=== PATIENT | male | born 1945 | race Caucasian/White ===

== ENCOUNTER 2020-11-01 16:40 | Emergency (ER) | payer MEDICARE, SELFPAY ==
--- NOTE | ~2020-11-01 | XR_ITS ---
EXAMINATION: CHEST AND RIGHT SHOULDER CLINICAL INFORMATION: Fall with pain COMPARISON: Chest radiograph 05/24/2018 TECHNIQUE: Single view chest, 3 views right shoulder FINDINGS: Patient status post median sternotomy. Heart size is normal. No infiltrates effusions or lung masses are seen. No fracture is seen involving the bony thorax. The right shoulder demonstrates degenerative changes with glenoid osteophytes. No fractures or dislocations are seen. Minimal degenerative changes present at the AC joint XR/XR shoulder RT min 2V IMPRESSION: No acute injury involving the chest or right shoulder. Degenerative changes present involving the glenohumeral joint.
--- NOTE | ~2020-11-01 | XR_ITS ---
EXAMINATION: CHEST AND RIGHT SHOULDER CLINICAL INFORMATION: Fall with pain COMPARISON: Chest radiograph 05/24/2018 TECHNIQUE: Single view chest, 3 views right shoulder FINDINGS: Patient status post median sternotomy. Heart size is normal. No infiltrates effusions or lung masses are seen. No fracture is seen involving the bony thorax. The right shoulder demonstrates degenerative changes with glenoid osteophytes. No fractures or dislocations are seen. Minimal degenerative changes present at the AC joint XR/XR chest 1V IMPRESSION: No acute injury involving the chest or right shoulder. Degenerative changes present involving the glenohumeral joint.
--- NOTE | ~2020-11-01 | CT_ITS ---
EXAMINATION: CT HEAD WITHOUT CONTRAST CT CERVICAL SPINE WITHOUT CONTRAST CLINICAL INFORMATION: Fall COMPARISON: 04/11/2019 TECHNIQUE: Multidetector CT imaging of the head and cervical spine was performed without the use of intravenous contrast. Multiplanar reformats are reviewed. This CT examination was performed using dose optimization techniques as appropriate, variously including the following: *Automated exposure control *Adjustment of mA and/or kV according to patient size (this includes techniques or standardized protocols for targeted exams where dose is matched to indication/reason for exam; i.e. extremities or head) *Use of iterative reconstruction technique DLP: 748 mGy-cm. FINDINGS: There is no evidence of acute intracranial hemorrhage or territorial infarction. No abnormal mass effect or midline shift is seen. Braun to white matter differentiation is well preserved. No extra-axial fluid collections are identified. The ventricles are normal in size. 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 The osseous structures and soft tissues are normal. The mastoid air cells and visualized portions of the paranasal sinuses are well-aerated. Atlantooccipital alignment is maintained. The vertebral bodies and posterior elements align normally. No acute fracture or subluxation. Vertebral body heights are maintained. Endplate osteophytes present throughout the cervical spine, most notably from C3--C7 with corresponding uncovertebral arthrosis. There is left-sided facet arthropathy from C2--C7. These changes result in varying degrees of foraminal narrowing throughout the cervical spine. The cervicomedullary junction and spinal cord are grossly unremarkable. The paraspinal soft tissues are unremarkable. The imaged lung apices are clear CT/CT cervical spine wo con IMPRESSION: No acute intracranial pathology chronic white matter small vessel ischemic changes, bilateral gangliocapsular and cerebellar lacunar infarcts redemonstrated. No cervical spine fracture or malalignment.
--- NOTE | 2020-11-01 16:54 | ECG_ITS ---
Test Reason : WEAKNESS Blood Pressure : / mmHG Vent. Rate : 079 BPM Atrial Rate : 079 BPM P-R Int : 170 ms QRS Dur : 084 ms QT Int : 376 ms P-R-T Axes : 099 -06 073 degrees QTc Int : 431 ms Normal sinus rhythm Normal EKG No significant changes when compared with the previous EKG of 11 apr 2019 Referred By: Igor Mcneal Electronically Signed By:CLYDE QURESHI
[2020-11-01 16:55] VITALS: BP 166/69; BP 167/104; PULSE 79; PULSE 86; RESP 16; TEMP 37; O2SAT 97; O2SAT 98; BMI 23.4
[2020-11-01 17:00] LABS: Glucose, Whole Blood 95 mg/dL (60-115)
--- NOTE | 2020-11-01 17:06 | PC.NURSE ---
this rn calling son, sol, who states pt doesn't always use walker and has fallen before with weakness in legs. Son has been living with patient untill last june. Plans to have father move into new home. Has services through [facility]. Med Hx: triple bipass, asthma, rheumatoid arthritis. Does not drink. Sol is HCP [phone] [facility] Sabrina [phone]
--- NOTE | 2020-11-01 17:17 | ED_ITS ---
HPI - Fall General Chief Complaint: Fall Stated Complaint: RT POSTERIOR SHLDR PAIN S/P FALL Time Seen by Provider: 11/01/20 16:54 Source: EMS Mode of arrival: EMS Limitations: language barrier (Primarily Citizen Of [place]-speaking thus translator/interpreter present) History of Present Illness HPI Narrative: This is pleasant 75-year-old male primarily Citizen Of [place]-speaking /certified medical coding specialist present for all interactions history gathered from the patient as well as the son he has a history of coronary artery disease status post stenting several years ago, hypertension, hyperlipidemia, gout, BPH, asthma, kidney disease and mild dementia who presents via EMS with complaint of fall. Per son who is his primary caregiver as well as his daughter he is currently living alone in the apartment here in [place] plan was to move into his son's house this weekend however do the snowstorm there was a delay in this. Father at baseline is unsteady on his feet he has a walker as well as some mild dementia for which she has been doing okay with however he has been experiencing some falls and the plan was to move it with the son so he can have around the clock care however this morning apparently some around 11:00 o'clock patient reports he went to the bathroom and was not using walker he tripped and his legs gave out and fell. States he was not able to help himself up so he called back to his bed. Patient apparently reported right shoulder pain to the EMS however states he feels better now. He denies any chest pain or shortness of breath. No head or neck injury he does arrive in a cervical collar. The granddaughter found him around 03:00 o'clock on the floor next to his bed and told him exactly what happened. MD complaint: fall Onset (ago): hour(s) Fall from: standing Fall witnessed: no Place fall occurred: home Loss of consciousness: none Prolonged down time: yes Symptoms prior to fall: none Context: tripped/slipped and history of frequent falls Location of injury: other (Right shoulder) Associated symptoms (after fall): denies Related Data Home Medications Medication Instructions Recorded Confirmed albuterol sulfate 2 puff INHALATION QID PRN 11/01/20 11/01/20 aspirin 1 tab PO QAM 11/01/20 11/01/20 atorvastatin 1 tab PO QAM 11/01/20 11/01/20 clopidogrel 1 tab PO QAM 11/01/20 11/01/20 donepezil 1 tab PO BEDTIME 11/01/20 11/01/20 ergocalciferol (vitamin D2) 1 cap PO QWEEK 11/01/20 11/01/20 levothyroxine 1 tab PO QAM 11/01/20 11/01/20 metoprolol tartrate 1.5 tab PO BID 11/01/20 11/01/20 Allergies Allergy/AdvReac Type Severity Reaction Status Date / Time No Known Allergies Allergy Verified 11/01/20 16:54 Review of Systems Review of Systems: Constitutional: No Weight loss, No Fever, No Chills, No Night Sweats, No Fatigue, No Malaise ENT/Mouth: No Hearing loss, No Ear Pain, No Nasal Congestion, No Sinus Pain, No Hoarseness, No sore throat, No Rhinorrhea, No Swallowing Difficulty Eyes: No Eye Pain, No Swelling, No Redness, No Foreign Body, No Discharge, No Vision Changes Cardiovascular: No Chest Pain, No SOB, No Dyspnea on Exertion, No Orthopnea, No Edema, No Palpitations Respiratory: No Cough, No Sputum, No Wheezing, No Smoke Exposure, No Dyspnea Gastrointestinal: No Nausea, No Vomiting, No Diarrhea, No Constipation, No abdominal Pain, No Hematochezia, No Melena Genitourinary: No Dysuria, No Urinary Frequency, No Hematuria, No Urinary Incontinence, No Urgency, No Flank Pain, No Urinary Flow Changes, No Hesitancy Musculoskeletal: No joint pain, No Myalgias, No Joint Swelling, , right shoulder pain as noted per HPI Skin: No Skin Lesions, No rash Neuro: No Weakness, No Numbness, No Paresthesias, No Loss of Consciousness, No Dizziness, No Headache Psych: No Anxiety/Panic, No Depression, No SI/HI/AH/VH Heme/Lymph: No Bruising, No Bleeding,No Lymphadenopathy Endocrine: No Polyuria, No Polydipsia, No Temperature Intolerance Yes all other systems are reviewed and are negative [facility] Social History Social History Alcohol intake: never Smoked in Last 30 Days: No Use of substances other than those prescribed or required for medical reasons: No Advance Directives: No Advance Directives Information Provided: No Physical Exam Vital Signs: Vital Signs: Last Vital Signs Temp 98.6 F 11/01/20 16:55 Pulse 71 11/01/20 19:09 Resp 16 11/01/20 19:09 BP 148/66 H 11/01/20 19:09 Pulse Ox 95 11/01/20 19:09 Body Mass Index 23.4 Reviewed Const: Other: male appearing his stated age, pleasantly graded us with translator/interpreter and able to fully recall the events of the day. This is baseline mentation per son General: cooperative; No acute distress or intoxicated appearing Nutritional Appearance: average body habitus Orientation/consciousness: oriented to person and oriented to place HENMT: Head: Yes normal to inspection Ears: hearing grossly normal bilaterally Eyes: General: appearance normal, both eyes and all related structures Visual Swift: normal visual swift by confrontation EOM: EOMs intact bilaterally Neck: Neck: Yes normal visual inspection, No positive Brudzinski's sign, No positive Kernig's sign and No tender Thyroid: Thyroid normal Chest: Chest palpation & inspection: normal inspection of the chest and no tenderness Resp: Effort & Inspection: normal respiratory effort Auscultation: clear to auscultation bilaterally Cardio: Jugular venous distension: no JVD Rate: regular rate Rhythm: re gular rhythm Heart sounds: S1 normal heart sound present and S2 normal heart sound present GI: Inspection: Yes normal to inspection Percussion: Yes normal to percussion Auscultation: normal bowel sounds : General: Yes no CVA tenderness Back/Spine/Pelvis: Back: no CVA tenderness Thoracic/Lumbar Spine: thoracic and lumbar spine normal to inspection Pelvis: no pain with anterior-posterior compression, no pain with lateral compression, no buttock ecchymosis and no buttock tenderness Sacrum: no ecchymosis Coccyx: no tenderness Skin: Other: Does not have any signs of bruising, ecchymosis or skin tears. General skin exam: no rashes or lesions noted Neuro: General: oriented to person and oriented to place Extrem: General: Yes normal to inspection Psych: Appearance: grossly normal and well ket NIH Stroke Scale Internal: Initial- Upon Arrival Level of Consciousness: Alert Level of Consciousness Questions: Answers both questions correctly Level of Consciousness Commands: Performs both tasks correctly Best Gaze: Normal Visual: No visual loss Facial Palsy: Normal Motor Arm (Right): No drift Motor Arm (Left): No drift Motor Leg (Right): No drift Motor Leg (Left): No drift Limb Ataxia: Absent Sensory: Normal Best Language: No aphasia Dysarthia: Normal Extinction and Inattention: No abnormality Score: 0 Course Course Course Narrative: Interview 75-year-old male with above history presenting with unwitnessed fall with some mild dementia at baseline mentation no focal neurological findings not tPA candidate. Did have some right shoulder pain given his history of dementia will scan his head as well as cervical spine and x-ray of his right shoulder. Will check labs including CPK. He states he overtly remembers exactly what happened does not offer any prodromal symptoms however again given the history will check labs. Reevaluation(s) Reevaluation #1: [id number] Son Shemar Barnes [phone] If we need to contact him Reevaluation #2: Renal function appears chronic otherwise CPK very minimally elevated at 379 given gradual fluids. Lab work otherwise overall reassuring. Offers no complaints. Ambulatory steady gait. Family reports they have adequate care at home and able to stay with him around the clock. Home safety, return, follow-up instructions provided. Stable for discharge. MDM - Fall Lab Data Result diagrams: 11/01/20 17:46 11/01/20 17:46 Labs: Lab Results 11/01/20 11/01/20 11/01/20 Range/Units 16:52 17:46 17:46 WBC 8.3 (4.8-10.8) X10*3/uL RBC 5.49 (4.60-5.80) X10*6/uL Hgb 15.3 (14.0-18.0) g/dl Hct 48.9 (42-52) % MCV 89.1 (80-98) fL MCH 27.9 (27.0-33.0) pg MCHC 31.3 (31.0-36.0) g/dl RDW 13.6 (11.0-16.0) % Plt Count 229 (160-400) X10*3/uL MPV 10.8 (9.4-12.4) fL Immature Gran % (Auto) 0.2 (0.0-0.4) % Neut % (Auto) 72.9 (45-73) % Lymph % (Auto) 15.3 L (20-40) % Borden % (Auto) 8.7 (2-11) % Eos % (Auto) 2.4 (0-4) % Baso % (Auto) 0.5 (0-2) % Lymph # (Auto) 1.3 (1.2-4.9) X10*3/uL Borden # (Auto) 0.7 (0.1-1.2) X10*3/uL Eos # (Auto) 0.2 (0.0-0.4) X10*3/uL Baso # (Auto) 0.0 (0.0-0.2) X10*3/uL Abs Immat Gran (auto) 0.02 (0.00-0.03) X10*3/uL Absolute Neuts (auto) 6.1 (2.0-8.3) X10*3/uL Absolute Nucleated RBC 0.000 (0.0-0.012) X10*3/uL Nucleated RBC % (auto) 0.0 (0.0-0.2) /100WBC PT 11.5 (10.8-13.0) SEC INR 1.0 (0.9-1.1) APTT 35.2 (24.1-38.0) SEC Sodium (135-145) mmol/L Potassium (3.3-5.1) mmol/L Chloride (96-108) mmol/L Carbon Dioxide (22-29) mmol/L Anion Gap (12-20) BUN (9-16) mg/dL Creatinine (0.5-1.4) mg/dL Estim Creat Clear Calc Estimated GFR POC Glucose 95 (60-115) mg/dL Random Glucose (60-115) mg/dL Calcium (8.4-10.2) mg/dL Total Bilirubin (0.0-1.0) mg/dL AST (5-37) U/L ALT (0-40) U/L Alkaline Phosphatase (39-117) U/L Total Creatine Kinase (38-174) U/L Troponin I High Sens (<3.5-35.0) ng/L Total Protein (6.5-8.0) g/dL Albumin (3.5-5.0) g/dL Urine Color Urine Appearance Urine pH (5.0-8.0) Ur Specific [place] (1.005-1.025) Urine Protein (NEG-TRACE) MG/DL Urine Glucose (UA) (NEG) MG/DL Urine Ketones (NEG) MG/DL Urine Blood (NEG) Urine Nitrite (NEG) Ur Leukocyte Esterase (NEG) Urine RBC (0) /HPF Urine WBC (0-4) /HPF Ur Squamous Epith Cells /LPF Urine Bacteria /LPF 11/01/20 11/01/20 11/01/20 Range/Units 17:46 17:46 19:09 WBC (4.8-10.8) X10*3/uL RBC (4.60-5.80) X10*6/uL Hgb (14.0-18.0) g/dl Hct (42-52) % MCV (80-98) fL MCH (27.0-33.0) pg MCHC (31.0-36.0) g/dl RDW (11.0-16.0) % Plt Count (160-400) X10*3/uL MPV (9.4-12.4) fL Immature Gran % (Auto) (0.0-0.4) % Neut % (Auto) (45-73) % Lymph % (Auto) (20-40) % Borden % (Auto) (2-11) % Eos % (Auto) (0-4) % Baso % (Auto) (0-2) % Lymph # (Auto) (1.2-4.9) X10*3/uL Borden # (Auto) (0.1-1.2) X10*3/uL Eos # (Auto) (0.0-0.4) X10*3/uL Baso # (Auto) (0.0-0.2) X10*3/uL Abs Immat Gran (auto) (0.00-0.03) X10*3/uL Absolute Neuts (auto) (2.0-8.3) X10*3/uL Absolute Nucleated RBC (0.0-0.012) X10*3/uL Nucleated RBC % (auto) (0.0-0.2) /100WBC PT (10.8-13.0) SEC INR (0.9-1.1) APTT (24.1-38.0) SEC Sodium 143 (135-145) mmol/L Potassium 4.4 (3.3-5.1) mmol/L Chloride 103 (96-108) mmol/L Carbon Dioxide 29 (22-29) mmol/L Anion Gap 15 (12-20) BUN 27 H (9-16) mg/dL Creatinine 1.74 H (0.5-1.4) mg/dL Estim Creat Clear Calc 31.6 Estimated GFR 39 POC Glucose (60-115) mg/dL Random Glucose 99 (60-115) mg/dL Calcium 8.9 (8.4-10.2) mg/dL Total Bilirubin 0.6 (0.0-1.0) mg/dL AST 17 (5-37) U/L ALT 11 (0-40) U/L Alkaline Phosphatase 142 H (39-117) U/L Total Creatine Kinase 379 H (38-174) U/L Troponin I High Sens 13.4 (<3.5-35.0) ng/L Total Protein 6.8 (6.5-8.0) g/dL Albumin 4.1 (3.5-5.0) g/dL Urine Color YELLOW Urine Appearance CLEAR Urine pH 5.5 (5.0-8.0) Ur Specific [place] 1.025 (1.005-1.025) Urine Protein NEG (NEG-TRACE) MG/DL Urine Glucose (UA) NEG (NEG) MG/DL Urine Ketones NEG (NEG) MG/DL Urine Blood NEG (NEG) Urine Nitrite NEG (NEG) Ur Leukocyte Esterase 1+ H (NEG) Urine RBC 1-4 (0) /HPF Urine WBC 5-9 H (0-4) /HPF Ur Squamous Epith Cells 1+ /LPF Urine Bacteria 1+ /LPF 11/01/20 Range/Units 19:19 WBC (4.8-10.8) X10*3/uL RBC (4.60-5.80) X10*6/uL Hgb (14.0-18.0) g/dl Hct (42-52) % MCV (80-98) fL MCH (27.0-33.0) pg MCHC (31.0-36.0) g/dl RDW (11.0-16.0) % Plt Count (160-400) X10*3/uL MPV (9.4-12.4) fL Immature Gran % (Auto) (0.0-0.4) % Neut % (Auto) (45-73) % Lymph % (Auto) (20-40) % Borden % (Auto) (2-11) % Eos % (Auto) (0-4) % Baso % (Auto) (0-2) % Lymph # (Auto) (1.2-4.9) X10*3/uL Borden # (Auto) (0.1-1.2) X10*3/uL Eos # (Auto) (0.0-0.4) X10*3/uL Baso # (Auto) (0.0-0.2) X10*3/uL Abs Immat Gran (auto) (0.00-0.03) X10*3/uL Absolute Neuts (auto) (2.0-8.3) X10*3/uL Absolute Nucleated RBC (0.0-0.012) X10*3/uL Nucleated RBC % (auto) (0.0-0.2) /100WBC PT (10.8-13.0) SEC INR (0.9-1.1) APTT (24.1-38.0) SEC Sodium (135-145) mmol/L Potassium (3.3-5.1) mmol/L Chloride (96-108) mmol/L Carbon Dioxide (22-29) mmol/L Anion Gap (12-20) BUN (9-16) mg/dL Creatinine (0.5-1.4) mg/dL Estim Creat Clear Calc Estimated GFR POC Glucose (60-115) mg/dL Random Glucose (60-115) mg/dL Calcium (8.4-10.2) mg/dL Total Bilirubin (0.0-1.0) mg/dL AST (5-37) U/L ALT (0-40) U/L Alkaline Phosphatase (39-117) U/L Total Creatine Kinase (38-174) U/L Troponin I High Sens 9.6 (<3.5-35.0) ng/L Total Protein (6.5-8.0) g/dL Albumin (3.5-5.0) g/dL Urine Color Urine Appearance Urine pH (5.0-8.0) Ur Specific [place] (1.005-1.025) Urine Protein (NEG-TRACE) MG/DL Urine Glucose (UA) (NEG) MG/DL Urine Ketones (NEG) MG/DL Urine Blood (NEG) Urine Nitrite (NEG) Ur Leukocyte Esterase (NEG) Urine RBC (0) /HPF Urine WBC (0-4) /HPF Ur Squamous Epith Cells /LPF Urine Bacteria /LPF Imaging Data Head/cervical CT: Radiologist's impression: [address] [id number] Scan ReportSigned Patient: Baljinder BarnesMR#: [id number]: [id number]:[id number]/Sex: 75 / MADM Date: 11/01/20Loc: [facility].EDAttending Dr: Ordering Physician: Igor Mcneal NP Date of Service: 11/01/20 Procedure(s): CT cervical spine wo con Accession Number(s): [id number] cc: Igor Mcneal NP~ EXAMINATION: CT HEAD WITHOUT CONTRAST CT CERVICAL SPINE WITHOUT CONTRAST CLINICAL INFORMATION: Fall COMPARISON: 04/11/2019 TECHNIQUE: Multidetector CT imaging of the head and cervical spine was performed without the use of intravenous contrast. Multiplanar reformats are reviewed. This CT examination was performed using dose optimization techniques as appropriate, variously including the following: *Automated exposure control *Adjustment of mA and/or kV according to patient size (this includes techniques or standardized protocols for targeted exams where dose is matched to indication/reason for exam; i.e. extremities or head) *Use of iterative reconstruction technique DLP: 748 mGy-cm. FINDINGS: There is no evidence of acute intracranial hemorrhage or territorial infarction. No abnormal mass effect or midline shift is seen. Braun to white matter differentiation is well preserved. No extra-axial fluid collections are identified. The ventricles are normal in size. 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 The osseous structures and soft tissues are normal. The mastoid air cells and visualized portions of the paranasal sinuses are well-aerated. Atlantooccipital alignment is maintained. The vertebral bodies and posterior elements align normally. No acute fracture or subluxation. Vertebral body heights are maintained. Endplate osteophytes present throughout the cervical spine, most notably from C3--C7 with corresponding uncovertebral arthrosis. There is left-sided facet arthropathy from C2--C7. These changes result in varying degrees of foraminal narrowing throughout the cervical spine. The cervicomedullary junction and spinal cord are grossly unremarkable. The paraspinal soft tissues are unremarkable. The imaged lung apices are clear CT/CT cervical spine wo con IMPRESSION: No acute intracranial pathology chronic white matter small vessel ischemic changes, bilateral gangliocapsular and cerebellar lacunar infarcts redemonstrated. No cervical spine fracture or malalignment. Dictated By:STEPHANIE CULVER MDSigned By:<Electronically signed by STEPHANIE CULVER MD in OV>11/01/201733 DD/ 1655TD/TT: Sales Developer: MELYSSA Chest x-ray/right shoulder x-ray: Radiologist's impression: [address] [id number] ReportSigned Patient: Baljinder BarnesMR#: [id number]: [id number]:[id number]/Sex: 75 / MADM Date: 11/01/20Loc: HO.EDAttending Dr: Ordering Physician: Igor Mcneal NP Date of Service: 11/01/20 Procedure(s): XR chest 1V Accession Number(s): [id number] cc: Igor Mcneal SFDC TECHNICAL ARCHITECT~ EXAMINATION: CHEST AND RIGHT SHOULDER CLINICAL INFORMATION: Fall with pain COMPARISON: Chest radiograph 05/24/2018 TECHNIQUE: Single view chest, 3 views right shoulder FINDINGS: Patient status post median sternotomy. Heart size is normal. No infiltrates effusions or lung masses are seen. No fracture is seen involving the bony thorax. The right shoulder demonstrates degenerative changes with glenoid osteophytes. No fractures or dislocations are seen. Minimal degenerative changes present at the AC joint XR/XR chest 1V IMPRESSION: No acute injury involving the chest or right shoulder. Degenerative changes present involving the glenohumeral joint. Dictated By:CELIA TODD MDSigned By:<Electronically signed by CELIA TODD MD in OV>11/01/20 1747 DD/ 1718TD/TT: Sales Developer: ABNER ECG Data Interpretation: Normal sinus rhythm Rate 79 OR interval within normal limits No acute ST segment changes Discharge Plan Discharge Clinical Impression: Gait disturbance Fall Qualifiers: Encounter type: initial encounter Qualified Code(s): W19.XXXA - Unspecified fall, initial encounter Contusion of right shoulder Qualifiers: Encounter type: initial encounter Qualified Code(s): S40.011A - Contusion of right shoulder, initial encounter Patient Disposition: Home, Self-Care Instructions: Fall Prevention for Older Adults (ED), Contusion in Adults (ED) Additional Instructions: Please push fluids Your blood work although was overall stable your kidney level was slightly elevated for this your given gradual fluids and must increase your fluid intake Use your walker Safety at home with safe environment this includes areas to be well lighted, no clutter in the walking area, no loose rugs. Follow with primary care doctor as discussed Return if any concerns or worsening symptoms Thank you Prescriptions: No Action atorvastatin 20 mg tablet 1 tab PO QAM RF: 0 donepezil 5 mg tablet 1 tab PO BEDTIME RF: 0 clopidogrel 75 mg tablet 1 tab PO QAM RF: 0 aspirin 81 mg tablet,delayed release (DR/EC) 1 tab PO QAM RF: 0 levothyroxine 125 mcg tablet 1 tab PO QAM RF: 0 metoprolol tartrate 50 mg tablet 1.5 tab PO BID RF: 0 ergocalciferol (vitamin D2) 1,250 mcg (50,000 unit) capsule 1 cap PO QWEEK RF: 0 albuterol sulfate 90 mcg/actuation HFA aerosol inhaler 2 puff inhalation QID PRN (Reason: Shortness Of Breath) RF: 0 Referrals: Mariana Rinaldi MD [Primary Care Provider] - 3 days
[2020-11-01 18:00] LABS: MANUAL DIFF FLAG NO
[2020-11-01 18:07] LABS: Prothrombin Time 11.5 SEC (10.8-13.0)
[2020-11-01 18:09] LABS: Partial Thromboplastin Time 35.2 SEC (24.1-38.0)
[2020-11-01 18:22] LABS: Basophils Percent Auto 0.5 % (0-2); Eosinophils Absolute Auto 0.2 X10*3/uL (0.0-0.4); Eosinophils Percent Auto 2.4 % (0-4); Hematocrit 48.9 % (42-52); Hemoglobin 15.3 g/dl (14.0-18.0); Imm Gran Abs Auto 0.02 X10*3/uL (0.00-0.03); Imm Gran Pct Auto 0.2 % (0.0-0.4); Lymphocytes Absolute Auto 1.3 X10*3/uL (1.2-4.9); Lymphocytes Percent Auto 15.3 % (20-40); Mean Corpuscular HGB Conc 31.3 g/dl (31.0-36.0); Mean Corpuscular Hemoglobin 27.9 pg (27.0-33.0); Mean Corpuscular Volume 89.1 fL (80-98); Mean Platelet Volume 10.8 fL (9.4-12.4); Monocytes Absolute Auto 0.7 X10*3/uL (0.1-1.2); Monocytes Percent Auto 8.7 % (2-11); Neutrophils Absolute Auto 6.1 X10*3/uL (2.0-8.3); Neutrophils Percent Auto 72.9 % (45-73); Platelet Count 229 X10*3/uL (160-400); Red Blood Count 5.49 X10*6/uL (4.60-5.80); Red Cell Distribution Width 13.6 % (11.0-16.0); White Blood Count 8.3 X10*3/uL (4.8-10.8)
[2020-11-01 18:25] LABS: Alanine Aminotransferase 11 U/L (0-40); Albumin Level 4.1 g/dL (3.5-5.0); Alkaline Phosphatase 142 U/L (39-117); Anion Gap 15 (12-20); Aspartate Amino Transferase 17 U/L (5-37); Bilirubin Total 0.6 mg/dL (0.0-1.0); Blood Urea Nitrogen 27 mg/dL (9-16); Calcium 8.9 mg/dL (8.4-10.2); Carbon Dioxide 29 mmol/L (22-29); Chloride 103 mmol/L (96-108); Creatinine Clr Calc Pharmacy 31.6; Estimated Glomerular Filt Rate 39; Glucose Random 99 mg/dL (60-115); Potassium 4.4 mmol/L (3.3-5.1); Sodium 143 mmol/L (135-145); Total Protein 6.8 g/dL (6.5-8.0); Troponin-I High Sensitivity 13.4 ng/L (<3.5-35.0)
[2020-11-01 19:09] VITALS: BP 148/66; PULSE 71; RESP 16; O2SAT 95
[2020-11-01 19:20] LABS: Glucose Urine UA NEG (NEG); Leukocyte Esterase Urine 1+ (NEG); Nitrite Urine NEG (NEG); PH 5.5 (5.0-8.0); Specific Gravity - Urine 1.025 (1.005-1.025); UACC Culture Trigger YES; Urine Blood NEG (NEG); Urine Ketones NEG (NEG); Urine Protein NEG (NEG-TRACE)
--- NOTE | 2020-11-01 19:20 | PC.NURSE ---
Pt found resting in bed, appears calm, denies pain/discomfort. Pt voiding easily in urinal to provide urine sample. Repeat Troponin obtained per order by CARPET MECHANIC despite his initial Trop being obtained < 2 hours ago. VSS. Per CARPET MECHANIC to await urine and Trop, plan for ambulation trial and DC home with son. Continue to monitor.
[2020-11-01 19:24] LABS: Appearance Urine CLEAR; Color Urine YELLOW
[2020-11-01 19:29] LABS: Bacteria Urine 1+ /LPF; Squamous Epithelial Cell Urine 1+ /LPF; UACC CULT YES
[2020-11-01 19:53] LABS: Troponin-I High Sensitivity 9.6 ng/L (<3.5-35.0)
--- NOTE | 2020-11-01 20:44 | PC.NURSE ---
Pt changed into personal clothes, provided with DC paperwork. Awaiting ride (son) at this time.
== END 2020-11-01 21:20 | disposition home or self-care (01) ==
PROVIDERS: Nurse Practitioner Primary Care; Emergency Provider Emergency Medicine; PCP Student in an Organized Health Care Education/Training Program
DX: R26.81 Unsteadiness on feet (principal); S40.011A Contusion of right shoulder, initial encounter; W01.0XXA Fall on same level from slipping, tripping and stumbling without subsequent striking against object, initial encounter; Z91.81 History of falling; F03.90 Unspecified dementia, unspecified severity, without behavioral disturbance, psychotic disturbance, mood disturbance, and anxiety; Y93.89 Activity, other specified; Y92.032 Bedroom in apartment as the place of occurrence of the external cause; Y99.9 Unspecified external cause status; Z79.899 Other long term (current) drug therapy
CPT/HCPCS: 36415; 70450; 71045; 72125; 73030; 80053; 81001; 82550; 82947; 84484; 85025; 85610; 85730; 87086; 93005; 99284